=== PATIENT | male | born 1955 | race Caucasian/White ===

== ENCOUNTER 2018-02-02 14:32 | Inpatient (IN) ==
[2018-02-02] MEDS ORDERED: MethylPREDNISolone Sod Succinate Inj 125 MG/2 ML Vial IV.PUSH ONE (15:00)
--- NOTE | 2018-02-02 15:08 | ED ---
HPI General Chief complaint: Respiratory Symptoms Stated complaint: SOB/Foot Swelling Complaint Time Seen by Provider: 02/02/18 14:52 History of Present Illness HPI narrative: 63-year-old male with history of COPD, smoker, presents for evaluation. He reports that for the past month he has had a 30 pound weight loss, no appetite, epigastric pain. He reports that he has chronic dyspnea but over the past 5 days he has had acutely worsening dyspnea. Symptoms persisted throughout the week which prompted evaluation today. He reports a slight dry cough. He denies chest pain. He denies nausea or vomiting. He endorses lower extremity edema for the last several weeks as well. Symptoms are moderate with no obvious aggravating or alleviating factors. No other complaints at this time. Related Data Home Medications Medication Instructions Recorded Confirmed Unable to Obtain Home Meds 02/02/18 02/02/18 Allergies Allergy/AdvReac Type Severity Reaction Status Date / Time No Known Allergies Allergy Verified 02/02/18 14:42 Review of Systems ROS: all other systems reviewed are negative [facility], [facility] Medical History Medical History COPD (chronic obstructive pulmonary disease) (Acute) Cataract (Acute) Hypercholesterolemia (Acute) Hypertension (Acute) Surgical History Surgical History History of cataract surgery (Acute) Social History Social History Substance History: No History of Abuse Smoking Status: Heavy tobacco smoker Tobacco Type: Cigarettes How Often Do You Have a Drink Containing Alcohol: Monthly or less Recent Travel in [facility] within the Last 8 Weeks: No Recent Out of Country Travel within the Last 8 Weeks: No Immunization History Tetanus Immunization: Unsure Exam Narrative Exam Narrative: GENERAL: This is a chronically ill-appearing male who appears dyspneic. SKIN: Warm and dry. HEAD: Atraumatic. Normocephalic. EYES: Pupils equal and round. No scleral icterus. No injection or drainage. ENT: No nasal bleeding or discharge. Mucous membranes pink and moist. NECK: Trachea midline. No JVD. CARDIOVASCULAR: Regular rate and rhythm. No murmur appreciated. RESPIRATORY: No accessory muscle use. There is diffuse wheezing and coarse breath sounds bilaterally. GASTROINTESTINAL: Abdomen soft, tender to palpation in the epigastrium. MUSCULOSKELETAL: No obvious deformities. No clubbing. No cyanosis. There is 2 + pitting edema in the lower extremities bilaterally. NEUROLOGICAL: Awake and alert. No obvious cranial nerve deficits. Motor grossly within normal limits. Normal speech. Course Initial Documented Vital Signs Temperature 97.3 F L 02/02/18 14:39 Pulse Rate 94 H 02/02/18 14:39 Respiratory Rate 30 H 02/02/18 14:39 Blood Pressure 101/68 02/02/18 14:39 Pulse Oximetry 92 L 02/02/18 14:39 Last Documented Vital Signs Temperature 97.3 F L 02/02/18 14:39 Pulse Rate 86 02/02/18 18:00 Respiratory Rate 35 H 02/02/18 18:00 Blood Pressure 144/91 H 02/02/18 16:41 Pulse Oximetry 88 L 02/02/18 18:00 Medical Decision Making JOSHUA Attestation JOSHUA supervised visit: Yes Attestation: I, Dr. Peterson, have reviewed the advance practice practitioner's documentation and am in agreement, met with the patient face to face, made the diagnosis, and the medical decision making was done by me. *My assessment and Findings: Patient seen and examined by me in addition to You Gonzales PA-C, this is a 63-year-old male who presents emergency department for evaluation of shortness of breath for the past few months, the patient states he has a history of COPD, he states his been to the [facility] as well as the [facility] and no one seems to be able to help him. His initial saturations here were 89 on room air, 94 on 4 L nasal cannula. He is tachycardic, tachypneic. He declines any history of fever. States that his legs are not usually swollen. He denies a history of CHF at least that he is not been told any history of CHF. The patient appears chronically ill and in general poor state of health. He has temporal wasting, he is tachycardic and tachypneic on physical exam, lungs are fairly clear for me but definitely with a decreased air entry. He is not on any oxygen at home. Certainly the patient will require admission for further treatment. Differential diagnosis includes COPD CHF PE, malignancy. Also on physical exam the patient did have some epigastric tenderness. He tells me that he has not drank since the 80s. He does continue to have cigarette smoking however. I agree that a CT abdomen pelvis is indicated as well. Other diagnostic considerations include pancreatitis, AAA, cholecystitis , acute hepatitis. MDM Narrative Medical decision making narrative: The patient was placed on ECG monitoring pulse oximetry. A 12-lead EKG was obtained. Lab work, chest x-ray, CT abdomen and pelvis, CT pulmonary angiogram ordered. The patient was given duo nebs and Solu-Medrol treatment. Lab work and imaging studies have been reviewed. BNP is elevated at 338. Potassium is 3.0, oral potassium chloride administered. CT pulmonary angiogram reveals severe emphysema but no acute process. CT abdomen and pelvis reveals cholelithiasis without any acute process. The patient came in hypoxic and tachycardic. At this point time the plan is to admit him for COPD exacerbation. He was given Rocephin and azithromycin. Medical Screen Exam Complete: Yes Emergency Medical Condition: Yes Differential Diagnosis Differential Diagnosis: COPD exacerbation, CHF, malignancy, pancreatitis, cholecystitis, pulmonary embolism, pneumonia Lab Data Result diagrams: 02/02/18 15:08 02/02/18 15:08 Lab Results 02/02/18 02/02/18 02/02/18 Range/Units 15:08 15:08 15:08 WBC 7.8 (4.0-11.0) th/mm3 RBC 4.50 (4.50-5.90) mil/mm3 Hgb 14.3 (13.0-17.0) gm/dL Hct 41.3 (39.0-51.0) % MCV 91.9 (80.0-100.0) fL MCH 31.9 (27.0-34.0) pg MCHC 34.7 (32.0-36.0) % RDW 15.0 (11.6-17.2) % Plt Count 144 L (150-450) th/mm3 MPV 8.9 (7.0-11.0) fL Neut % (Auto) 67.5 (16.0-70.0) % Lymph % (Auto) 24.0 (9.0-44.0) % [place]ilton % (Auto) 7.0 (0.0-8.0) % Eos % (Auto) 0.8 (0.0-4.0) % Baso % (Auto) 0.7 (0.0-2.0) % Neut # (Auto) 5.3 (1.8-7.7) th/mm3 Lymph # (Auto) 1.9 (1.0-4.8) th/mm3 [place]ilton # (Auto) 0.5 (0.0-0.9) th/mm3 Eos # (Auto) 0.1 (0.0-0.4) th/mm3 Baso # (Auto) 0.1 (0.0-0.2) th/mm3 WBC Differential . Differential Comment Auto diff final PT 10.7 (9.8-11.6) sec INR 1.1 Ratio APTT 33.8 H (23.4-31.7) sec Sodium 138 (136-145) meq/L Potassium 3.0 L (3.5-5.1) meq/L Chloride 103 (98-107) meq/L Carbon Dioxide 23.6 (21.0-32.0) meq/L Anion Gap 11 (5-15) meq/L BUN 9 (7-18) mg/dL Creatinine 1.25 (0.60-1.30) mg/dL Estimated GFR 58 L (>89) mL/min Random Glucose 109 H (74-106) mg/dL Lactic Acid (0.4-2.0) mmol/L Calcium 8.0 L (8.5-10.1) mg/dL Magnesium 2.0 (1.5-2.5) mg/dL Total Bilirubin 3.2 H (0.2-1.0) mg/dL AST 19 (15-37) U/L ALT 22 (12-78) U/L Alkaline Phosphatase 91 (45-117) U/L Total Creatine Kinase 199 (39-308) U/L CK-MB (CK-2) 4.8 H (0.5-3.6) ng/mL Troponin I Less than 0.02 L (0.02-0.05) ng/mL B-Natriuretic Peptide (0-100) pg/mL Total Protein 6.6 (6.4-8.2) g/dL Albumin 3.6 (3.4-5.0) g/dL Lipase 32 L (73-393) U/L HIV 1&2 Ab/P24 Ag 4thGn (Nonreactive) 02/02/18 02/02/18 02/02/18 Range/Units 15:08 15:08 15:08 WBC (4.0-11.0) th/mm3 RBC (4.50-5.90) mil/mm3 Hgb (13.0-17.0) gm/dL Hct (39.0-51.0) % MCV (80.0-100.0) fL MCH (27.0-34.0) pg MCHC (32.0-36.0) % RDW (11.6-17.2) % Plt Count (150-450) th/mm3 MPV (7.0-11.0) fL Neut % (Auto) (16.0-70.0) % Lymph % (Auto) (9.0-44.0) % Chilton % (Auto) (0.0-8.0) % Eos % (Auto) (0.0-4.0) % Baso % (Auto) (0.0-2.0) % Neut # (Auto) (1.8-7.7) th/mm3 Lymph # (Auto) (1.0-4.8) th/mm3 Chilton # (Auto) (0.0-0.9) th/mm3 Eos # (Auto) (0.0-0.4) th/mm3 Baso # (Auto) (0.0-0.2) th/mm3 WBC Differential Differential Comment PT (9.8-11.6) sec INR Ratio APTT (23.4-31.7) sec Sodium (136-145) meq/L Potassium (3.5-5.1) meq/L Chloride (98-107) meq/L Carbon Dioxide (21.0-32.0) meq/L Anion Gap (5-15) meq/L BUN (7-18) mg/dL Creatinine (0.60-1.30) mg/dL Estimated GFR (>89) mL/min Random Glucose (74-106) mg/dL Lactic Acid 1.9 (0.4-2.0) mmol/L Calcium (8.5-10.1) mg/dL Magnesium (1.5-2.5) mg/dL Total Bilirubin (0.2-1.0) mg/dL AST (15-37) U/L ALT (12-78) U/L Alkaline Phosphatase (45-117) U/L Total Creatine Kinase Cancelled (39-308) U/L CK-MB (CK-2) (0.5-3.6) ng/mL Troponin I (0.02-0.05) ng/mL B-Natriuretic Peptide 338 H (0-100) pg/mL Total Protein (6.4-8.2) g/dL Albumin (3.4-5.0) g/dL Lipase (73-393) U/L HIV 1&2 Ab/P24 Ag 4thGn (Nonreactive) 02/02/18 02/02/18 Range/Units 15:08 15:27 WBC (4.0-11.0) th/mm3 RBC (4.50-5.90) mil/mm3 Hgb (13.0-17.0) gm/dL Hct (39.0-51.0) % MCV (80.0-100.0) fL MCH (27.0-34.0) pg MCHC (32.0-36.0) % RDW (11.6-17.2) % Plt Count (150-450) th/mm3 MPV (7.0-11.0) fL Neut % (Auto) (16.0-70.0) % Lymph % (Auto) (9.0-44.0) % Chilton % (Auto) (0.0-8.0) % Eos % (Auto) (0.0-4.0) % Baso % (Auto) (0.0-2.0) % Neut # (Auto) (1.8-7.7) th/mm3 Lymph # (Auto) (1.0-4.8) th/mm3 [place]ilton # (Auto) (0.0-0.9) th/mm3 Eos # (Auto) (0.0-0.4) th/mm3 Baso # (Auto) (0.0-0.2) th/mm3 WBC Differential Differential Comment PT (9.8-11.6) sec INR Ratio APTT Cancelled (23.4-31.7) sec Sodium (136-145) meq/L Potassium (3.5-5.1) meq/L Chloride (98-107) meq/L Carbon Dioxide (21.0-32.0) meq/L Anion Gap (5-15) meq/L BUN (7-18) mg/dL Creatinine (0.60-1.30) mg/dL Estimated GFR (>89) mL/min Random Glucose (74-106) mg/dL Lactic Acid (0.4-2.0) mmol/L Calcium (8.5-10.1) mg/dL Magnesium (1.5-2.5) mg/dL Total Bilirubin (0.2-1.0) mg/dL AST (15-37) U/L ALT (12-78) U/L Alkaline Phosphatase (45-117) U/L Total Creatine Kinase (39-308) U/L CK-MB (CK-2) (0.5-3.6) ng/mL Troponin I (0.02-0.05) ng/mL B-Natriuretic Peptide (0-100) pg/mL Total Protein (6.4-8.2) g/dL Albumin (3.4-5.0) g/dL Lipase (73-393) U/L HIV 1&2 Ab/P24 Ag 4thGn Nonreactive (Nonreactive) Imaging Data Radiologist's impression: Abdomen/Pelvis CT 02/02/18 15:00 CONCLUSION: 1. Cholelithiasis. 2. No evidence of acute process. Chest X-Ray 02/02/18 15:00 CONCLUSION: COPD No evidence of acute airspace disease. Chest CTA 02/02/18 15:01 CONCLUSION: 1. No evidence of pulmonary embolism. 2. Severe emphysematous chronic obstructive pulmonary disease. 3. No evidence of acute airspace disease. Venous Doppler Study 02/02/18 15:04 CONCLUSION: 1. No sonographic evidence for lower extremity DVT. Discharge Plan Discharge Disposition Patient Disposition: 30 Still Patient Discharge Condition Condition: Stable Discharge Details Diagnosis: COPD exacerbation, Hypokalemia Physicians Team ED Provider: Tomi Eyl ED Midlevel Provider: You Gonzales Primary Care Provider: [facility] /Orders / Referrals /Forms Prescriptions: No Action Unable to Obtain Home Meds RF: 0 Status ED Status: With Doctor
[2018-02-02 15:34] LABS: Baso # (Auto) 0.1 th/mm3 (0.0-0.2); Baso % (Auto) 0.7 % (0.0-2.0); Eos # (Auto) 0.1 th/mm3 (0.0-0.4); Eos % (Auto) 0.8 % (0.0-4.0); Hematocrit 41.3 % (39.0-51.0); Hemoglobin 14.3 gm/dL (13.0-17.0); Lymph # (Auto) 1.9 th/mm3 (1.0-4.8); Mean Corpuscular HGB Conc 34.7 % (32.0-36.0); Mean Corpuscular Hemoglobin 31.9 pg (27.0-34.0); Mean Corpuscular Volume 91.9 fL (80.0-100.0); Mean Platelet Volume 8.9 fL (7.0-11.0); Mono # (Auto) 0.5 th/mm3 (0.0-0.9); Neut # (Auto) 5.3 th/mm3 (1.8-7.7); Neut % (Auto) 67.5 % (16.0-70.0); Platelet Count 144 th/mm3 (150-450); White Blood Count 7.8 th/mm3 (4.0-11.0)
--- NOTE | 2018-02-02 15:37 | XR ---
EXAM DATE: 02/02/2018 3:33 PM EST AGE/SEX: 63 years / Male INDICATIONS: Short of breath. CLINICAL DATA: This is the patient's initial encounter. Patient reports that signs and symptoms have been present for 4 - 6 days and indicates a pain score of 0/10. MEDICAL/SURGICAL HISTORY: Chronic obstructive pulmonary disease. None. COMPARISON: No prior exams available for comparison. FINDINGS: Lungs are hyperinflated. There is no evidence of acute airspace disease or significant congestion. Heart remains within normal limits in size. CONCLUSION: COPD No evidence of acute airspace disease. Electronically signed by: Alex Gonzales MD 02/02/2018 3:36 PM EST
[2018-02-02 15:41] LABS: Activated Partial Thrombo Time 33.8 sec (23.4-31.7); INR 1.1 Ratio; Prothrombin Time 10.7 sec (9.8-11.6)
[2018-02-02 15:48] LABS: Alanine Aminotransferase 22 U/L (12-78); Albumin 3.6 g/dL (3.4-5.0); Anion Gap 11 meq/L (5-15); Aspartate Aminotransferase 19 U/L (15-37); Blood Urea Nitrogen 9 mg/dL (7-18); Carbon Dioxide 23.6 meq/L (21.0-32.0); Chloride 103 meq/L (98-107); Glomerular Filtration Rate 58 mL/min (>89); Glucose,Random 109 mg/dL (74-106); Lipase 32 U/L (73-393); Sodium 138 meq/L (136-145)
--- NOTE | 2018-02-02 15:52 | US ---
EXAM DATE: 02/02/2018 3:49 PM EST AGE/SEX: 63 years / Male INDICATIONS: Bilateral leg swelling. CLINICAL DATA: This is the patient's initial encounter. Patient reports that signs and symptoms have been present for > 1 year and indicates a pain score of 0/10. MEDICAL/SURGICAL HISTORY: Chronic obstructive pulmonary disease. Hypercholesterolemia. Hypert ension. Cataract. . Cataract surgery. COMPARISON: No prior exams available for comparison. TECHNIQUE: Venous ultrasound of both lower extremities was performed from the inguinal ligament to t he proximal calf. Real-time, color Doppler and spectral tracing, compression and augmentation techni ques were used. FINDINGS: Right Leg: Normal compression of the deep venous system from the inguinal region to the proximal luis enrique f. No echogenic clot is seen. Normal response of the venous system to augmentation and respiration. Left Leg: Normal compression of the deep venous system from the inguinal region to the proximal calf . No echogenic clot is seen. Normal response of the venous system to augmentation and respiration. Other: None. CONCLUSION: 1. No sonographic evidence for lower extremity DVT. Electronically signed by: Jefry Aiken MD 02/02/2018 3:51 PM EST
[2018-02-02 15:53] LABS: Alkaline Phosphatase 91 U/L (45-117); Creatine Kinase 199 U/L (39-308); Total Protein 6.6 g/dL (6.4-8.2)
[2018-02-02 16:05] LABS: Creatine Kinase MB 4.8 ng/mL (0.5-3.6)
--- NOTE | 2018-02-02 17:55 | CT ---
EXAM DATE: 02/02/2018 5:46 PM EST AGE/SEX: 63 years / Male INDICATIONS: Abdominal pain. CLINICAL DATA: This is the patient's initial encounter. Patient reports that signs and symptoms have been present for 1 day and indicates a pain score of 6/10. MEDICAL/SURGICAL HISTORY: Hypertension. Chronic obstructive pulmonary disease. None. ORAL CONTRAST: No oral contrast ingested. RADIATION DOSE: 8.84 CTDI (mGy) ; Combined studies COMPARISON: No prior exams available for comparison. TECHNIQUE: Multiple contiguous axial images were obtained through the abdomen and pelvis following b olus infusion of 99 ml Omnipaque 350 (iohexol) nonionic water-soluble contrast as a cumulative dose for multiple exams. No oral contrast ingested. Using automated exposure control and adjustment of t he mA and/or kV according to patient size, radiation dose was kept as low as reasonably achievable to obtain optimal diagnostic quality images. DICOM format image data is available electronically for r eview and comparison. FINDINGS: Lower Lungs: The visualized lower lungs are clear. Liver: Small focal hypodensity is identified in segment 4 adjacent to the falciform ligament. Liver i s otherwise unremarkable. Small stones are identified within the gallbladder. There are no active inf lammatory changes or evidence of biliary duct dilatation. Spleen: Homogeneous density without enlargement. Pancreas: Unremarkable without mass or calcification. Kidneys: Normal in size and shape. No evidence of mass or hydronephrosis. Adrenal Glands: Unremarkable. Aorta: The aorta and proximal iliac vessels are grossly unremarkable without aneurysmal dilation. Bowel/Mesentery: The bowel loops are grossly unremarkable. The cecum and sigmoid colon have a normal configuration. Abdominal Wall: Intact. Retroperitoneum: No evidence of adenopathy in the retrocrural, para-aortic, or deep pelvic regions. Bladder: Contours are smooth. Reproductive Organs: No abnormal masses or calcifications seen. Inguinal: The inguinal region is unremarkable without evidence of adenopathy. Bony Structures: Unremarkable. CONCLUSION: 1. Cholelithiasis. 2. No evidence of acute process. Electronically signed by: Alex Gonzales MD 02/02/2018 5:54 PM EST
--- NOTE | 2018-02-02 18:05 | CT ---
EXAM DATE: 02/02/2018 5:50 PM EST AGE/SEX: 63 years / Male INDICATIONS: Short of breath. CLINICAL DATA: This is the patient's initial encounter. Patient reports that signs and symptoms have been present for 2 weeks and indicates a pain score of 6/10. MEDICAL/SURGICAL HISTORY: Chronic obstructive pulmonary disease. Hypertension. None. RADIATION DOSE: 8.84 CTDI (mGy) ; Combined studies COMPARISON: No prior exams available for comparison. TECHNIQUE: Volumetric scanning was performed using a multi-row detector CT scanner during bolus infu jaylin of 99 ml Omnipaque 350 (iohexol) nonionic water-soluble contrast as a cumulative dose for multi ple exams. The data was post processed with a variety of visualization algorithms including full volu me maximum intensity projection and sliding thin slab reformation. Using automated exposure control a nd adjustment of the mA and/or kV according to patient size, radiation dose was kept as low as reason ably achievable to obtain optimal diagnostic quality images. DICOM format image data is available el ectronically for review and comparison. FINDINGS: Pulmonary Arteries: No filling defects are seen in the pulmonary arteries out to the subsegmental ve ssels. The left and right pulmonary arteries are normal in diameter. Lung: Lungs are hyperinflated. There is extensive emphysematous disease throughout both lungs. There is no evidence of consolidating airspace disease or suspicious nodular densities. Effusion: None. Mediastinum: No evidence of mediastinal or hilar adenopathy. Moderate coronary artery calcification is noted. Other: The axilla is unremarkable. CONCLUSION: 1. No evidence of pulmonary embolism. 2. Severe emphysematous chronic obstructive pulmonary disease. 3. No evidence of acute airspace disease. Electronically signed by: Alex Gonzales MD 02/02/2018 6:04 PM EST
[2018-02-02] MEDS ORDERED: Azithromycin Inj 500 MG in Sodium Chlor 0.9% Inj 250 ML IV.SIG ONE (18:15)
[2018-02-02] MEDS ORDERED: Bisacodyl 10 MG Supp RECTAL PRN (21:26)
[2018-02-02] MEDS ORDERED: Acetaminophen 325 MG Tablet PO PRN (21:26)
--- NOTE | 2018-02-02 21:55 | ECG ---
Date Performed: 02/02/2018 Time Performed: 14:51:51 PTAGE: 63 years EKG: Sinus rhythm INDETERMINATE AXIS PATTERN CONSISTENT WITH PULMONARY DISEASE INCOMPLETE RIGHT BUNDLE BRANCH BLOCK NO NSPECIFIC T-WAVE ABNORMALITY ABNORMAL ECG NO PREVIOUS TRACING DOCTOR: Darryl Bojorquez Interpretating Date/Time 02/02/2018 21:54:10
[2018-02-02] MEDS: MethylPREDNISolone Sod Succinate Inj 40 MG/ML Vial IV.PUSH SCH (22:26)
[2018-02-03] MEDS: MethylPREDNISolone Sod Succinate Inj 40 MG/ML Vial IV.PUSH SCH ×4 (04:17→21:32)
[2018-02-03 05:52] LABS: Baso % (Auto) 0.2 % (0.0-2.0); Eos % (Auto) 0.1 % (0.0-4.0); Hematocrit 39.8 % (39.0-51.0); Hemoglobin 13.3 gm/dL (13.0-17.0); Lymph # (Auto) 0.5 th/mm3 (1.0-4.8); Lymph % (Auto) 13.7 % (9.0-44.0); Mean Corpuscular HGB Conc 33.5 % (32.0-36.0); Mean Corpuscular Hemoglobin 31.2 pg (27.0-34.0); Mean Corpuscular Volume 93.2 fL (80.0-100.0); Mean Platelet Volume 9.2 fL (7.0-11.0); Mono # (Auto) 0.1 th/mm3 (0.0-0.9); Mono % (Auto) 1.9 % (0.0-8.0); Neut # (Auto) 3.1 th/mm3 (1.8-7.7); Neut % (Auto) 84.1 % (16.0-70.0); Platelet Count 125 th/mm3 (150-450); Red Blood Count 4.27 mil/mm3 (4.50-5.90); Red Cell Distribution Width 14.8 % (11.6-17.2); White Blood Count 3.7 th/mm3 (4.0-11.0)
[2018-02-03 06:17] LABS: Alanine Aminotransferase 18 U/L (12-78); Albumin 3.1 g/dL (3.4-5.0); Alkaline Phosphatase 76 U/L (45-117); Anion Gap 12 meq/L (5-15); Aspartate Aminotransferase 17 U/L (15-37); Blood Urea Nitrogen 9 mg/dL (7-18); Calcium 8.3 mg/dL (8.5-10.1); Carbon Dioxide 21.2 meq/L (21.0-32.0); Chloride 107 meq/L (98-107); Glomerular Filtration Rate 75 mL/min (>89); Glucose,Random 132 mg/dL (74-106); Sodium 140 meq/L (136-145)
[2018-02-03] MEDS: Senna/Docusate Sodium 8.6/50 MG Tablet PO SCH ×2 (08:20→22:14)
[2018-02-03] MEDS: guaiFENesin 600 MG ER Tablet PO SCH ×2 (08:20→21:32)
[2018-02-03] MEDS: Heparin - SQ 10,000 UNITS/ML Vial SQ SCH ×2 (08:20→21:32)
[2018-02-03] MEDS: Budesonide-Formoterol 160/4.5 MCG 6 GM Inhaler INH SCH ×2 (08:44→22:14)
--- NOTE | 2018-02-03 12:47 | P.HPIM ---
History of Present Illness Primary Care Physician: Physician [place] Chief Complaint: sob History of Present Illness: 63-year-old male with history of COPD, smoker, presents for evaluation. He reports that for the past month he has had a 30 pound weight loss, no appetite, epigastric pain. He reports that he has chronic dyspnea but over the past 5 days he has had acutely worsening dyspnea. Symptoms persisted throughout the week which prompted evaluation today. He reports a slight dry cough. He denies chest pain. He denies nausea or vomiting. The patient also says he has loss weight as he is not able to eat much. He endorses lower extremity edema for the last several weeks as well. Symptoms are moderate with no obvious aggravating or alleviating factors. No other complaints at this time. No fever or chills. Inpatient Certification: I certify that the inpatient services were ordered in accordance with Medicare regulations governing the order. This includes certification that hospital inpatient services are reasonable and necessary and in the case of services not specified as inpatient-only under 42 CFR 419.22(n), that they are appropriately provided as inpatient services in accordance to with the 2-midnight benchmark under 43 CFR 412.3(e) Estimated Total Length of Stay (Days): 2 Plans for Post Hospital Care: Not yet determined Review of Systems All other systems reviewed negative except as stated in HPI PMFSH - History History Provided By: Patient - Medical History Medical History: Medical History (Last Reviewed 02/03/18 @ 12:39 by Chaya Shafer MD) COPD (chronic obstructive pulmonary disease) Cataract Hypercholesterolemia Hypertension - Surgical History Surgical History: Surgical History (Last Reviewed 02/03/18 @ 12:39 by Chaya Shafer MD) History of cataract surgery - Family History Family History: Family History (Last Updated 02/03/18 @ 14:11 by Chaya Shafer MD) Father Lung cancer - Social History I have reviewed the patient's Social History: Yes - Tobacco History Second Hand Smoke Exposure: No Tobacco Use In Past 30 Days: Yes Smoking Status: Current every day smoker Tobacco Type: Cigarettes - Alcohol History How Often Do You Have a Drink Containing Alcohol: Never - Substance Use History Substance History: No History of Abuse - Travel History Recent Travel in the [place] Within the Last 8 Weeks: No Recent Travel Out of the Country Within the Last 8 Weeks: No - Immunization History Tetanus Immunization: Unsure Hx Influenza Vaccine This Season: No Medications and Allergies Active Medications: Active Medications Acetaminophen (Tylenol) 650 mg PO Q4H PRN PRN Reason: Temp > 100.4 Al Hydroxide/Mg Hydroxide (Milk Of Magnesia Liq) 30 ml PO Q12H PRN PRN Reason: Mild Constipation Albuterol (Duoneb Neb (Prn)) 1 ampul NEB Q2HR NEB PRN PRN Reason: SOB/WHEEZING Albuterol (Duoneb Neb (Munira)) 1 ampul NEB Q4HR WHILE AWAKE NEB [facility] Last Admin: 02/03/18 08:49 Dose: 1 ampul Bisacodyl (Dulcolax Supp) 10 mg RECTAL DAILY PRN PRN Reason: SEVERE CONSITIPATION Budesonide/Formoterol Fumarate (Symbicort 160/4.5 Mcg Inh) 2 puff INH BID [facility] Last Admin: 02/03/18 08:44 Dose: 2 puff Guaifenesin (Mucinex Er) 600 mg PO BID [facility] Last Admin: 02/03/18 08:20 Dose: 600 mg Heparin Sodium (Porcine) (Heparin Inj) 5,000 units SQ Q12H [facility] Last Admin: 02/03/18 08:20 Dose: 5,000 units Levofloxacin/Dextrose (Levaquin 750 Mg Premix Inj) 150 mls @ 100 mls/hr IV.SIG Q24H [facility] Lactulose (Lactulose Liq) 30 ml PO DAILY PRN PRN Reason: SEVERE CONSITIPATION Methylprednisolone Sodium Succinate (Solumedrol Inj) 40 mg IV.PUSH Q6H [facility] Last Admin: 02/03/18 09:12 Dose: 40 mg Ondansetron HCl (Zofran Inj) 4 mg IV.PUSH Q6H PRN PRN Reason: NAUSEA OR VOMITING Senna/Docusate Sodium (Allyson-Colace) 1 tab PO BID [facility] Last Admin: 02/03/18 08:20 Dose: 1 tab Sennosides (Senokot) 17.2 mg PO Q12H PRN PRN Reason: Moderate Constipation Allergies Allergy/AdvReac Type Severity Reaction Status Date / Time No Known Allergies Allergy Verified 02/02/18 14:42 Home Medications Medication Instructions Recorded Confirmed Type Unable to Obtain Home Meds 02/02/18 02/02/18 History Exam Vital signs: Vital Signs 02/02/18 14:39 02/02/18 14:50 02/02/18 14:55 Temperature 97.3 F L Pulse Rate 94 H 91 H Respiratory Rate 30 H 35 H Blood Pressure 101/68 120/88 Pulse Oximetry 92 L 99 94 L 02/02/18 15:00 02/02/18 15:22 02/02/18 16:41 Temperature Pulse Rate 91 H 88 Respiratory Rate 26 H 26 H Blood Pressure 144/91 H Pulse Oximetry 96 96 02/02/18 18:00 02/02/18 21:00 02/02/18 22:17 Temperature 97.1 F L Pulse Rate 86 90 95 H Respiratory Rate 35 H 24 24 Blood Pressure 95/77 L 105/80 Pulse Oximetry 88 L 94 L 94 L 02/03/18 03:47 02/03/18 04:00 02/03/18 08:00 Temperature 97.8 F 98.1 F Pulse Rate 88 62 92 H Respiratory Rate 20 20 Blood Pressure 130/80 124/83 Pulse Oximetry 97 93 L 02/03/18 08:51 02/03/18 12:00 Temperature 97.6 F Pulse Rate 62 90 Respiratory Rate 20 20 Blood Pressure 122/80 Pulse Oximetry 98 94 L Intake & Output 02/02/18 02/03/18 02/03/18 18:59 06:59 18:59 Intake Total 470 / 470 Balance 470 / 470 Weight 53.07 kg 57.6 kg Intake: IV 350 / 350 Azithromycin Inj 500 MG In NS 250 / 250 Inj 250 ML @ 250 mls/hr IV.SIG ONCE ONE Rx#:[id number] Rocephin Inj 2,000 MG In NS Inj 100 / 100 100 ML @ 200 mls/hr IV.SIG ONCE ONE Rx#:[id number] Oral 120 / 120 Other: # Voids 3 Weight On Admission 58.3 kg Narrative: GENERAL: Pleasant frail 63 yo male, well nourished, well developed patient, with some sob. SKIN: Warm and dry. HEAD: Atraumatic. Normocephalic. EYES: Pupils equal and round. No scleral icterus. No injection or drainage. ENT: No nasal bleeding or discharge. Mucous membranes pink and moist. NECK: Trachea midline. No JVD. CARDIOVASCULAR: Regular rate and rhythm. RESPIRATORY: No accessory muscle use. Decreased breath sounds, scattered wheezing. GASTROINTESTINAL: Abdomen soft, non-tender, nondistended. Hepatic and splenic margins not palpable. MUSCULOSKELETAL: Extremities without clubbing, cyanosis, or edema. No obvious deformities. NEUROLOGICAL: Awake and alert. No obvious cranial nerve deficits. Motor grossly within normal limits. Five out of 5 muscle strength in the arms and legs. Normal speech. PSYCHIATRIC: Appropriate mood and affect; insight and judgment normal. Results - Labs CBC & Chem 7: 02/03/18 04:33 02/03/18 04:33 Labs: Short CBC 02/02/18 02/03/18 Range/Units 15:08 04:33 WBC 7.8 3.7 L D (4.0-11.0) th/mm3 Hgb 14.3 13.3 (13.0-17.0) gm/dL Hct 41.3 39.8 (39.0-51.0) % Plt Count 144 L 125 L (150-450) th/mm3 BMP 02/02/18 02/03/18 15:08 04:33 Sodium 138 140 Potassium 3.0 L 4.0 D Chloride 103 107 Carbon Dioxide 23.6 21.2 BUN 9 9 Creatinine 1.25 1.00 Calcium 8.0 L 8.3 L Cardiac Enzymes 02/02/18 02/02/18 Range/Units 15:08 15:08 Total Creatine Kinase 199 Cancelled (39-308) U/L CK-MB (CK-2) 4.8 H (0.5-3.6) ng/mL Troponin I Less than 0.02 L (0.02-0.05) ng/mL Liver Function 02/02/18 02/03/18 Range/Units 15:08 04:33 Total Bilirubin 3.2 H 2.2 H (0.2-1.0) mg/dL AST 19 17 (15-37) U/L ALT 22 18 (12-78) U/L Alkaline Phosphatase 91 76 (45-117) U/L Albumin 3.6 3.1 L (3.4-5.0) g/dL - Imaging Impressions Abdomen/Pelvis CT 02/02/18 15:00 CONCLUSION: 1. Cholelithiasis. 2. No evidence of acute process. Chest X-Ray 02/02/18 15:00 CONCLUSION: COPD No evidence of acute airspace disease. Chest CTA 02/02/18 15:01 CONCLUSION: 1. No evidence of pulmonary embolism. 2. Severe emphysematous chronic obstructive pulmonary disease. 3. No evidence of acute airspace disease. Venous Doppler Study 02/02/18 15:04 CONCLUSION: 1. No sonographic evidence for lower extremity DVT. Caprini VTE Risk Assessment Caprini VTE Risk Assessment: Moderate/High Risk (score >= 2) Caprini Risk Assessment Model: Point Value = 1 Point Value = 2 Point Value = 3 Point Value = 5 Age 41-60 Minor surgery BMI > 25 kg/m2 Swollen legs Varicose veins or History of unexplained or recurrent spontaneous Oral contraceptives or hormone replacement Sepsis (< 1 month) Serious lung disease, including pneumonia (< 1 month) Abnormal pulmonary function Acute myocardial infarction Congestive heart failure (< 1 month) History of inflammatory bowel disease Medical patient at bed rest Age 61-74 Arthroscopic surgery Major open surgery (> 45 min) Laparoscopic surgery (> 45 min) Malignancy Confined to bed (> 72 hours) Immobilizing plaster cast Central venous access Age >= 75 History of VTE Family history of VTE Factor V Leiden Prothrombin [id number] Lupus anticoagulant Anticardiolipin antibodies Elevated serum homocysteine Heparin-induced thrombocytopenia Other congenital or acquired thrombophilia Stroke (< 1 month) Elective arthroplasty Hip, pelvis, or leg fracture Acute spinal cord injury (< 1 month) Prophylaxis Regimen: Total Risk Factor Score Risk Level Prophylaxis Regimen 0-1 Low Early ambulation 2 Moderate Order ONE of the following: *Sequential Compression Device (SCD) *Heparin 5000 units SQ BID 3-4 Higher Order ONE of the following medications: *Heparin 5000 units SQ TID *Enoxaparin/Lovenox 40 mg SQ daily (WT < 150 kg, CrCl > 30 mL/min) *Enoxaparin/Lovenox 30 mg SQ daily (WT < 150 kg, CrCl > 10-29 mL/min) *Enoxaparin/Lovenox 30 mg SQ BID (WT < 150 kg, CrCl > 30 mL/min) AND/OR *Sequential Compression Device (SCD) 5 or more Highest Order ONE of the following medications: *Heparin 5000 units SQ TID (Preferred with Epidurals) *Enoxaparin/Lovenox 40 mg SQ daily (WT < 150 kg, CrCl > 30 mL/min) *Enoxaparin/Lovenox 30 mg SQ daily (WT < 150 kg, CrCl > 10-29 mL/min) *Enoxaparin/Lovenox 30 mg SQ BID (WT < 150 kg, CrCl > 30 mL/min) AND *Sequential Compression Device (SCD) Assessment and Plan - Plan COPD exacerbation Acute respiratory failure, Hypoxic on admission, patient is not on O2 at home Hypokalemia CTA Chest with changes consistent with severe COPD. No PE, no infiltrates. CT A/P shows cholelithiasis US doppler LE no DVT Continue azithro and Rocephin IV abx Solumedrol IV, taper as tolerated Duonebs scheduled and prn, taper as tolerated O2 supplement to maintain O2 sat > 92% K replaced monitor and replace as need. Chronic medical problems HTN, HLD appears stable, continue home meds as indicated. Monitor and adjust meds if need DVT ppx scd/teds/ heparin H&P: Quality - VTE Deep Vein Thrombosis/Pulmonary Embolism Present on Admission: No
[2018-02-04] MEDS: MethylPREDNISolone Sod Succinate Inj 40 MG/ML Vial IV.PUSH SCH ×4 (03:53→21:36)
--- NOTE | 2018-02-04 08:40 | P.PN ---
Subjective Interval history: He is at the margin of the bed he appears short of breath. However he is saturating well on 3 L by nasal cannula. Says he feels improved today. Has a nonproductive cough. No chest pain. No nausea or vomiting. He says he is eating better. Denies fever or chills. Physical Exam Vital signs: Vital Signs 02/03/18 08:51 02/03/18 12:00 02/03/18 15:37 Temperature 97.6 F Pulse Rate 62 97 H Respiratory Rate 20 20 Blood Pressure 122/80 Pulse Oximetry 98 94 L 93 L 02/03/18 15:38 02/03/18 16:00 02/03/18 19:05 Temperature 97.7 F Pulse Rate 102 H 103 H 88 Respiratory Rate 20 20 18 Blood Pressure 95/62 L Pulse Oximetry 94 L 02/03/18 20:00 02/04/18 00:00 02/04/18 04:00 Temperature 97.5 F L 97.6 F 97.8 F Pulse Rate 99 H 94 H 89 Respiratory Rate 20 20 20 Blood Pressure 105/68 108/70 115/87 Pulse Oximetry 93 L 91 L 92 L 02/04/18 04:19 02/04/18 08:01 Temperature Pulse Rate 88 88 Respiratory Rate 16 Blood Pressure Pulse Oximetry 98 Intake & Output 02/03/18 02/04/18 02/04/18 18:59 06:59 18:59 Intake Total 380 / 380 150 / 150 Output Total 1400 / 1400 475 / 475 Balance -1020 / -1020 -325 / -325 Weight 57.9 kg Intake: IV 150 / 150 Levaquin 750 mg Premix Inj 150 150 / 150 ML @ 100 mls/hr IV.SIG Q24H [facility] Rx#:[id number] Oral 380 / 380 Output: Urine 1400 / 1400 475 / 475 Other: # Bowel Movements 0 Narrative: GENERAL: Pleasant frail 63 yo male, well nourished, well developed patient, with some sob. CARDIOVASCULAR: Regular rate and rhythm. RESPIRATORY: No accessory muscle use. Decreased breath sounds, minimal wheezing. GASTROINTESTINAL: Abdomen soft, non-tender, nondistended. Hepatic and splenic margins not palpable. MUSCULOSKELETAL: Extremities without clubbing, cyanosis, or edema. No obvious deformities. NEUROLOGICAL: Awake and alert. No obvious cranial nerve deficits. Motor grossly within normal limits. Five out of 5 muscle strength in the arms and legs. Normal speech. PSYCHIATRIC: Appropriate mood and affect; insight and judgment normal. Results - Labs CBC & Chem 7: 02/03/18 04:33 02/03/18 04:33 Microbiology 02/02/18 15:08 Blood - Peripheral Aerobic Blood Culture - Preliminary No growth in 1 day 02/02/18 15:08 Blood - Peripheral Anaerobic Blood Culture - Preliminary No growth in 1 day 02/02/18 15:03 Blood - Peripheral Aerobic Blood Culture - Preliminary No growth in 1 day 02/02/18 15:03 Blood - Peripheral Anaerobic Blood Culture - Preliminary No growth in 1 day Assessment and Plan - Plan COPD exacerbation Severe COPD Acute respiratory failure, Hypoxic on admission, patient is not on O2 at home Hypokalemia resolved Severe protein calorie malnutrition BMI 17.3 low albumin, bitemporal wasting, muscle wasting, weak handgrip. Will check prealbumin. We will add Ensure as a dietary supplement CTA Chest with changes consistent with severe COPD. No PE, no infiltrates. CT A/P shows cholelithiasis US doppler LE no DVT Continue azithro and Rocephin IV abx Solumedrol IV, taper as tolerated Duonebs scheduled and prn, taper as tolerated O2 supplement to maintain O2 sat > 92% K replaced monitor and replace as need. Will need oxygen walking test at discharge Chronic medical problems HTN, HLD appears stable, continue home meds as indicated. Monitor and adjust meds if need DVT ppx scd/teds/ heparin Discharge plan discharge in 1 or 2 days when improves. Will needs oxygen walking test at discharge as patient most likely will need oxygen at home.
[2018-02-04] MEDS: Heparin - SQ 10,000 UNITS/ML Vial SQ SCH ×2 (08:51→20:29)
[2018-02-04] MEDS: Senna/Docusate Sodium 8.6/50 MG Tablet PO SCH ×2 (08:53→20:31)
[2018-02-04] MEDS: guaiFENesin 600 MG ER Tablet PO SCH ×2 (08:53→20:29)
[2018-02-04] MEDS: Budesonide-Formoterol 160/4.5 MCG 6 GM Inhaler INH SCH ×2 (08:59→20:29)
--- NOTE | 2018-02-04 15:34 | P.DIET ---
Nutritional Evaluation Type of nutrition evaluation: initial Nutrition screening: Weight Loss > 10 lbs Screening comments: pt reports a 30-lb wt loss over the last month, no appetite, epigastric pain Subjective Subjective Comments: 100% po intake for breakfast today Objective - Diagnosis COPD Exacerabation, hypoxia - Objective % IBW: 72 Body Weight Used for Calculations: Actual (58.3 kg) Energy Needs - Lower Range (kCal/kg): 35 Energy Needs - Upper Range (kCal/kg): 40 Lower Limit kCal/kg (kCals): 2,041 Upper Limit kCal/kg (kCals): 2,332 Lower Limit Protein Factor (Grams per Kg): 1.3 Upper Limit Protein Factor (Grams per Kg): 1.6 Lower Protein Needs (Protein): 76 Upper Protein Needs (Protein): 93 Dietitian Reviewed in Medical Record: Current diet, Curent medications, Intake & Output, Labs, Medical history Diet Order: Regular Oral Diet Intake Amount: Good 75-90% Objective Comments: PMH includes: Cataract, COPD, hypercholesterolemia, HTN LBM 02/03 Feeding - Current PO Supplement Current Supplement: Ensure Pudding Current Frequency of Supplement: Three times a day Current kCals Provided by Supplement: 170 Current Protein Provided by Supplement: 4 Assessment Assessment: Pt is at nutritional risk r/t recent unintentional wt loss. Pt is currently w/ Adequate po intake here 50% or greater for meals. MD order for Ensure Pudding TID. Send Ensure Enlive TID(= 350 kcal and 20g protein per serving). Follow-up for pt supplement acceptance. Labs reviewed. Recommendations: 1. MD order for Ensure Pudding TID 2. Send Ensure Enlive TID 3. Follow-up for pt supplement acceptance Dietitian to Monitor: Lab values, Supplement acceptance, Intake & Output, Weight change, PO Intake, Medical course
[2018-02-05] MEDS: MethylPREDNISolone Sod Succinate Inj 40 MG/ML Vial IV.PUSH SCH ×3 (05:33→21:55)
[2018-02-05 07:02] LABS: Baso % (Auto) 0.1 % (0.0-2.0); Hematocrit 41.9 % (39.0-51.0); Hemoglobin 14.1 gm/dL (13.0-17.0); Lymph # (Auto) 0.6 th/mm3 (1.0-4.8); Lymph % (Auto) 6.2 % (9.0-44.0); Mean Corpuscular HGB Conc 33.5 % (32.0-36.0); Mean Corpuscular Hemoglobin 31.4 pg (27.0-34.0); Mean Corpuscular Volume 93.7 fL (80.0-100.0); Mean Platelet Volume 9.2 fL (7.0-11.0); Mono # (Auto) 0.3 th/mm3 (0.0-0.9); Mono % (Auto) 3.6 % (0.0-8.0); Neut # (Auto) 8.1 th/mm3 (1.8-7.7); Neut % (Auto) 90.1 % (16.0-70.0); Platelet Count 140 th/mm3 (150-450); Red Blood Count 4.47 mil/mm3 (4.50-5.90); Red Cell Distribution Width 14.7 % (11.6-17.2)
[2018-02-05 07:24] LABS: Calcium 8.9 mg/dL (8.5-10.1); Carbon Dioxide 25.5 meq/L (21.0-32.0); Potassium 4.2 meq/L (3.5-5.1)
[2018-02-05] MEDS: Budesonide-Formoterol 160/4.5 MCG 6 GM Inhaler INH SCH ×2 (08:07→21:55)
[2018-02-05] MEDS: guaiFENesin 600 MG ER Tablet PO SCH ×2 (08:07→21:54)
[2018-02-05] MEDS: Senna/Docusate Sodium 8.6/50 MG Tablet PO SCH ×2 (08:07→21:54)
[2018-02-05] MEDS: Heparin - SQ 10,000 UNITS/ML Vial SQ SCH ×2 (08:07→21:58)
--- NOTE | 2018-02-05 09:45 | P.PN ---
Subjective Interval history: The patient is at the margin of the bed he does not have any wheezing however he still short of breath and he failed oxygen walking test. He is not coughing. No fever or chills overnight. Feels tired. Eating better. Says he does not like the Ensure pudding. We will give regular Ensure. Physical Exam Vital signs: Vital Signs 02/04/18 12:00 02/04/18 12:01 02/04/18 15:28 Temperature 97.3 F L Pulse Rate 97 H 96 H 91 H Respiratory Rate 19 20 16 Blood Pressure 112/78 Pulse Oximetry 93 L 02/04/18 16:04 02/04/18 19:20 02/04/18 19:45 Temperature 97.4 F L Pulse Rate 97 H 94 H 94 H Respiratory Rate 18 18 Blood Pressure 117/76 Pulse Oximetry 92 L 95 02/04/18 20:00 02/04/18 20:30 02/04/18 23:44 Temperature 97.9 F Pulse Rate 92 H 95 H Respiratory Rate 19 Blood Pressure 121/67 Pulse Oximetry 95 95 02/05/18 00:00 02/05/18 04:00 02/05/18 07:41 Temperature 97.4 F L 97.2 F L Pulse Rate 92 H 91 H 90 Respiratory Rate 19 17 16 Blood Pressure 111/78 125/82 Pulse Oximetry 98 94 L 93 L 02/05/18 08:00 Temperature 97.3 F L Pulse Rate 88 Respiratory Rate 18 Blood Pressure 127/95 H Pulse Oximetry 93 L Intake & Output 02/04/18 02/05/18 02/05/18 18:59 06:59 18:59 Intake Total 320 / 320 570 / 570 Output Total 1400 / 1400 1200 / 1200 Balance -1080 / -1080 -630 / -630 Weight 57.3 kg Intake: IV 150 / 150 Levaquin 750 mg Premix Inj 150 150 / 150 ML @ 100 mls/hr IV.SIG Q24H [facility] Rx#:[id number] Oral 320 / 320 420 / 420 Output: Urine 1400 / 1400 1200 / 1200 Other: Date of Last Bowel Movement 02/03/18 # Bowel Movements 0 Narrative: GENERAL: Pleasant frail 63 yo male, well nourished, well developed patient, with some sob. CARDIOVASCULAR: Regular rate and rhythm. RESPIRATORY: No accessory muscle use. Decreased breath sounds, no wheezing. GASTROINTESTINAL: Abdomen soft, non-tender, nondistended. Hepatic and splenic margins not palpable. MUSCULOSKELETAL: Extremities without clubbing, cyanosis, or edema. No obvious deformities. NEUROLOGICAL: Awake and alert. No obvious cranial nerve deficits. Motor grossly within normal limits. Five out of 5 muscle strength in the arms and legs. Normal speech. PSYCHIATRIC: Appropriate mood and affect; insight and judgment normal. Results - Labs CBC & Chem 7: 02/05/18 06:24 02/05/18 06:24 Laboratory Results - last 24 hr 02/05/18 02/05/18 06:24 06:24 WBC 9.0 RBC 4.47 L Hgb 14.1 Hct 41.9 MCV 93.7 MCH 31.4 MCHC 33.5 RDW 14.7 Plt Count 140 L MPV 9.2 Neut % (Auto) 90.1 H Lymph % (Auto) 6.2 L [place] % (Auto) 3.6 Eos % (Auto) 0.0 Baso % (Auto) 0.1 Neut # (Auto) 8.1 H Lymph # (Auto) 0.6 L [place] # (Auto) 0.3 Eos # (Auto) 0.0 Baso # (Auto) 0.0 WBC Differential . Differential Comment Auto diff final Sodium 138 Potassium 4.2 Chloride 101 Carbon Dioxide 25.5 Anion Gap 12 BUN 19 H Creatinine 1.04 Estimated GFR 72 L Random Glucose 114 H Calcium 8.9 Prealbumin 23 Microbiology 02/02/18 15:08 Blood - Peripheral Aerobic Blood Culture - Preliminary No growth in 2 days 02/02/18 15:08 Blood - Peripheral Anaerobic Blood Culture - Preliminary No growth in 2 days 02/02/18 15:03 Blood - Peripheral Aerobic Blood Culture - Preliminary No growth in 2 days 02/02/18 15:03 Blood - Peripheral Anaerobic Blood Culture - Preliminary No growth in 2 days Assessment and Plan - Plan COPD exacerbation, resolving Severe COPD Acute respiratory failure, Hypoxic on admission, patient is not on O2 at home. Patient failed oxygen walking test and needs oxygen supplement at home Hypokalemia resolved Severe protein calorie malnutrition BMI 17.3 low albumin, bitemporal wasting, muscle wasting, weak handgrip. Will check prealbumin. We will add Ensure as a dietary supplement CTA Chest with changes consistent with severe COPD. No PE, no infiltrates. CT A/P shows cholelithiasis US doppler LE no DVT Continue azithro and Rocephin IV abx Solumedrol IV, tapered as tolerated Duonebs scheduled and prn, taper as tolerated O2 supplement to maintain O2 sat > 92% K replaced monitor and replace as need. Patient failed oxygen walking test and he needs O2 at DC. Chronic medical problems HTN, HLD appears stable, continue home meds as indicated. Monitor and adjust meds if need DVT ppx scd/teds/ heparin Discussed with the patient, nurse, case management Discharge plan: discharge tomorrow when arrangements for home O2 are done. Will do O2 walk test today and poss DC tomorrow when arrangements are done, [facility] provided tomorrow most likely , as today is a holiday and arrangements can't be done for O2 at DC. Patient failed oxygen walking test and he needs O2 at DC. Discussed with the patient and with the CM.
--- NOTE | 2018-02-05 13:21 | P.DS ---
Date of admission: 02/02/18 18:51 Primary care physician: '[facility] Brief History from admission: 63-year-old male with history of COPD, smoker, presents for evaluation. He reports that for the past month he has had a 30 pound weight loss, no appetite, epigastric pain. He reports that he has chronic dyspnea but over the past 5 days he has had acutely worsening dyspnea. Symptoms persisted throughout the week which prompted evaluation today. He reports a slight dry cough. He denies chest pain. He denies nausea or vomiting. The patient also says he has loss weight as he is not able to eat much. He endorses lower extremity edema for the last several weeks as well. Symptoms are moderate with no obvious aggravating or alleviating factors. No other complaints at this time. No fever or chills. DS: Diagnosis - Discharge Diagnosis (1) Severe chronic obstructive pulmonary disease Status: Acute (2) Acute respiratory failure Status: Acute (3) Hypoxia Status: Acute (4) COPD exacerbation Status: Acute (5) Hypokalemia Status: Acute DS: Medications - Discharge Medications Prescriptions: budesonide-formoterol [Symbicort] 2 puff INH BID 30 Days g guaifenesin [Mucinex] 600 mg PO BID #10 tab ipratropium-albuterol 1 amp NEB Q4HR WHILE AWAKE NEB 30 Days ml levofloxacin 750 mg PO Q24H #5 tab prednisone 20 mg PO BID 4 Days #32 tab DS: Summary Hospital Course: COPD exacerbation, resolved Severe COPD Acute respiratory failure, Hypoxic on admission, patient is not on O2 at home. Patient failed oxygen walking test and needs oxygen supplement at home,provided at [place] Hypokalemia resolved Severe protein calorie malnutrition BMI 17.3 low albumin, bitemporal wasting, muscle wasting, weak handgrip. Will check prealbumin. We will add Ensure as a dietary supplement CTA Chest with changes consistent with severe COPD. No PE, no infiltrates. CT A/P shows cholelithiasis US doppler LE no DVT Continue azithro and Rocephin IV abx Solumedrol IV, tapered as tolerated Duonebs scheduled and prn, taper as tolerated O2 supplement to maintain O2 sat > 92% K replaced monitor and replace as need. Patient failed oxygen walking test and he needs O2 at [place]. Chronic medical problems HTN, HLD appears stable, continue home meds as indicated. Monitor and adjust meds if need DVT ppx scd/teds/ heparin Discussed with the patient, nurse, case management Discharge plan: discharge tomorrow when arrangements for home O2 are done. Will do O2 walk test today and poss DC tomorrow when arrangements are done, [facility] and [facility] will be provided tomorrow most likely , as today is a holiday and arrangements can't be done for O2 at [place]. Patient failed oxygen walking test and he needs O2 at [place], ordered and arranged by CM. Discussed with the patient and with the CM. - Time Spent with Patient Total time spent providing and/or coordinating discharge services: Greater than 30 minutes - Quality: VTE Deep Vein Thrombosis/Pulmonary Embolism Present on Admission: No Exam Vital signs: Vital Signs 02/04/18 15:28 02/04/18 16:04 02/04/18 19:20 Temperature 97.4 F L Pulse Rate 91 H 97 H 94 H Respiratory Rate 16 18 18 Blood Pressure 117/76 Pulse Oximetry 92 L 95 Pulse Oximetry [Resting on Room Air] Pulse Oximetry [Resting with Oxygen] 02/04/18 19:45 02/04/18 20:00 02/04/18 20:30 Temperature 97.9 F Pulse Rate 94 H 92 H Respiratory Rate 19 Blood Pressure 121/67 Pulse Oximetry 95 95 Pulse Oximetry [Resting on Room Air] Pulse Oximetry [Resting with Oxygen] 02/04/18 23:44 02/05/18 00:00 02/05/18 04:00 Temperature 97.4 F L 97.2 F L Pulse Rate 95 H 92 H 91 H Respiratory Rate 19 17 Blood Pressure 111/78 125/82 Pulse Oximetry 98 94 L Pulse Oximetry [Resting on Room Air] Pulse Oximetry [Resting with Oxygen] 02/05/18 07:41 02/05/18 07:59 02/05/18 08:00 Temperature 97.3 F L Pulse Rate 90 83 88 Respiratory Rate 16 18 Blood Pressure 127/95 H Pulse Oximetry 93 L 93 L Pulse Oximetry [Resting on Room Air] Pulse Oximetry [Resting with Oxygen] 02/05/18 11:17 02/05/18 12:00 02/05/18 12:07 Temperature 97.2 F L Pulse Rate 98 H 93 H Respiratory Rate 16 18 Blood Pressure 131/92 H Pulse Oximetry 94 L Pulse Oximetry [Resting on Room Air] 88 L Pulse Oximetry [Resting with Oxygen] 95 Intake & Output 02/04/18 02/05/18 02/05/18 18:59 06:59 18:59 Intake Total 320 / 320 570 / 570 Output Total 1400 / 1400 1200 / 1200 Balance -1080 / -1080 -630 / -630 Weight 57.3 kg Intake: IV 150 / 150 Levaquin 750 mg Premix Inj 150 150 / 150 ML @ 100 mls/hr IV.SIG Q24H CHAVO Rx#:[id number] Oral 320 / 320 420 / 420 Output: Urine 1400 / 1400 1200 / 1200 Other: Date of Last Bowel Movement 02/03/18 # Bowel Movements 0 Narrative: GENERAL: Pleasant frail 63 yo male, well nourished, well developed patient, with some sob. CARDIOVASCULAR: Regular rate and rhythm. RESPIRATORY: No accessory muscle use. Decreased breath sounds, no wheezing. GASTROINTESTINAL: Abdomen soft, non-tender, nondistended. Hepatic and splenic margins not palpable. MUSCULOSKELETAL: Extremities without clubbing, cyanosis, or edema. No obvious deformities. NEUROLOGICAL: Awake and alert. No obvious cranial nerve deficits. Motor grossly within normal limits. Five out of 5 muscle strength in the arms and legs. Normal speech. PSYCHIATRIC: Appropriate mood and affect; insight and judgment normal. Results Procedures completed during hospitalization: none Labs on day of discharge: Labs from last 24 hours 02/05/18 02/05/18 06:24 06:24 WBC 9.0 RBC 4.47 L Hgb 14.1 Hct 41.9 MCV 93.7 MCH 31.4 MCHC 33.5 RDW 14.7 Plt Count 140 L MPV 9.2 Neut % (Auto) 90.1 H Lymph % (Auto) 6.2 L [place] % (Auto) 3.6 Eos % (Auto) 0.0 Baso % (Auto) 0.1 Neut # (Auto) 8.1 H Lymph # (Auto) 0.6 L [place] # (Auto) 0.3 Eos # (Auto) 0.0 Baso # (Auto) 0.0 WBC Differential . Differential Comment Auto diff final Sodium 138 Potassium 4.2 Chloride 101 Carbon Dioxide 25.5 Anion Gap 12 BUN 19 H Creatinine 1.04 Estimated GFR 72 L Random Glucose 114 H Calcium 8.9 Prealbumin 23 Preliminary micro results at discharge 02/02/18 15:08 Aerobic Blood Culture - Preliminary Blood - Peripheral No growth in 3 days Anaerobic Blood Culture - Preliminary No growth in 3 days 02/02/18 15:03 Aerobic Blood Culture - Preliminary Blood - Peripheral No growth in 3 days Anaerobic Blood Culture - Preliminary No growth in 3 days - Impressions ITS Impressions Abdomen/Pelvis CT 02/02/18 15:00 CONCLUSION: 1. Cholelithiasis. 2. No evidence of acute process. Chest X-Ray 02/02/18 15:00 CONCLUSION: COPD No evidence of acute airspace disease. Chest CTA 02/02/18 15:01 CONCLUSION: 1. No evidence of pulmonary embolism. 2. Severe emphysematous chronic obstructive pulmonary disease. 3. No evidence of acute airspace disease. Venous Doppler Study 02/02/18 15:04 CONCLUSION: 1. No sonographic evidence for lower extremity DVT. Discharge Plan - Discharge Disposition Patient Disposition: 01 Discharge Home - Discharge Condition Condition: Stable - Discharge Order Discharge Orders: Discharge Order (Routine); Ordered 02/06/18 Ordered By: Chaya Shafer - Discharge Details Anticipated Discharge Date: 02/06/18 - Physicians Team Primary Care Provider: [facility] Attending Provider: Chaya Shafer
[2018-02-05] MEDS ORDERED: levoFLOXacin 750 MG Tablet PO SCH (21:00)
[2018-02-06] MEDS: MethylPREDNISolone Sod Succinate Inj 40 MG/ML Vial IV.PUSH SCH (05:53)
[2018-02-06] MEDS: Senna/Docusate Sodium 8.6/50 MG Tablet PO SCH (08:20)
[2018-02-06] MEDS: Budesonide-Formoterol 160/4.5 MCG 6 GM Inhaler INH SCH (08:20)
[2018-02-06] MEDS: guaiFENesin 600 MG ER Tablet PO SCH (08:21)
[2018-02-06] MEDS: Heparin - SQ 10,000 UNITS/ML Vial SQ SCH (08:21)
[2018-02-06 12:35] VITALS: BP 124/81; RESP 16; TEMP 97.5; O2SAT 95
[2018-02-06 13:20] VITALS: PULSE 93
== END 2018-02-06 13:14 | disposition home or self-care (01) ==
LOC: NEPE 14:32 → NEDA 18:51 → N04 21:53
PROVIDERS: ADMIT Hospitalist; ATTEND Hospitalist